=== PATIENT | male | born 1995 | race Caucasian/White ===

== ENCOUNTER 2018-07-20 14:04 | Emergency (ER) | payer OTHER ==
[~2018-07-20] VITALS: Ht 188 cm; Wt 127.0 kg
[2018-07-20 16:01] VITALS: BP 128/80
[2018-07-20] MEDS ORDERED: MOBIC7.5 MG PO ×3 (16:05→16:23)
[2018-07-20] MEDS ORDERED: BUTALB-APAP-CA1 EACH PO (16:05)
--- NOTE | 2018-07-20 17:29 | EKG ---
[place] [address] [place] [address] ELECTROCARDIOGRAM REPORT Name: ELIZABETH KEY Room #: DEP Matthias#: [id number] ������������������ Admission: 07/20/18 ������������������ Attend Phys: Discharge: 07/20/18 ������������������ Date of : [birth year] Report #: [id number] ����������������������������������������������������������������� [id number] THIS REPORT FOR: //name// [facility] ED Test Date: 2018-07-20 Test Time: 14:24:51 Pat Name: ELIZABETH KEY Department: Room: Gender: Car [employer]orer: [facility] : 1995 Requested By: Jose Ocampo Order Number: [id number] MD: Madi Castañeda Measurements Intervals [place] Rate: 58 P: 49 [place]: 150 QRS: -7 QRSD: 119 T: 29 QT: 396 QTc: 389 Interpretive Statements Sinus bradycardia Ventricular premature complex Incomplete right bundle branch block No previous ECG available for comparison Electronically Signed On 07-20-2018 17:29:17 CDT by Madi Castañeda [email or web address] ��������������������������������������������� <ELECTRONICALLY SIGNED> ���������������������������������������� By: Madi Castañeda MD, [facility] ��������������������������������������������� 07/20/18 1729 1424 1424 Madi Castañeda MD, FACC /EPI
== END 2018-07-20 16:30 | disposition home or self-care (01) ==
LOC: ER 14:04
DX: R51 Headache (principal); R07.89 Other chest pain